=== PATIENT | male | born 1960 | race African-American/Black ===

== ENCOUNTER 2017-04-28 23:03 | Inpatient (IN) | payer MEDICAID ==
--- NOTE | ~2017-04-28 | EC ---
PATIENT:KRISTINA AGRCIA JR DATE OF SERVICE: 04/28/17 SEX: M MEDICAL RECORD: [id number] DATE OF : 60 LOCATION:D.M2 D.213 AGE OF PATIENT: 56 ADMISSION DATE: 04/28/17 REFERRING PHYSICIAN: INTERPRETING PHYSICIAN: ERIN GALO MD ECHOCARDIOGRAM REPORT ECHO CHARGES 4 ECHO COMPLETE CLINICAL DIAGNOSIS: CHF HX ICD ECHOCARDIOGRAPHIC MEASUREMENTS (adult normal given) AC root (d.<3.7cm) 3.4 cm LV Septum d (<1.2 cm> 1.5 cm Valve Excursion 1.5 cm LV Septum (systole) 1.8 cm Left Atria (s.<4.0cm> 4.4 cm LVPW d(<1.2cm) 1.3 cm RV (d.<2.3cm) 6.3 cm LVPW (sytole) 1.5 cm LV diastole(<5.6CM) 6.9 cm MV E-F(>70mm/sec) cm LV systole 5.6 cm LVOT Diameter 1.8 cm MV exc.(>10mm) 1.5 cm Est.ejection fraction (50-75%) % Pericardial Effusion N DOPPLER: LVIT cm/sec A 71.0 cm/sec E 140 cm/sec LA cm/sec RVSP 48 mmHg LVOT 127 cm/sec AOP1/2T m/s Asc. Ao 195 cm/sec RVOT 109 cm/sec RA cm/sec PA 1458 cm/sec AV Gradient Peak 15.18mmHg AV Mean 7.74 mmHg AV Area 1.7 cm MV Gradient Peak 7.08 mmHg MV Mean 2.42 mmHg MV Area cm COMMENTS: Small Electric Engine Technician: Anjel SOLIS Die Drawing Checker: 2 Dr. [employer] TAPE# PACS DATE OF SERVICE: 05/01/2017 PROCEDURE: Transthoracic echocardiogram. FINDINGS: 1. The left ventricle has evidence of left ventricular hypertrophy, is also dilated. There is regional wall motion abnormalities present including inferior apical dyskinesis and overall ejection fraction of 20% to 25%. The patient's diastolic function is indeterminate. 2. The left atrium is moderately dilated. ECHOCARDIOGRAM REPORT [id number] RADHA KRISTINA XAVIER 3. The aortic valve is structurally normal. 4. Pulmonic valve has trace to mild pulmonic insufficiency. 5. Tricuspid valve has mild tricuspid regurgitation, appears to be a pacer lead coming through the right atrium, right ventricle through the tricuspid valve structure. RVSP is 48 mmHg. 6. The right atrium is moderately dilated. 7. The right ventricle is severely dilated. CONCLUSIONS: The patient has evidence of systolic dysfunction, dilated cardiomyopathy with regional wall motion abnormalities consistent with ischemic cardiomyopathy. TRANSINT:[id number] Voice Confirmation ID: [id number] DOCUMENT ID: [id number] 05/12/2017 Edited to correct date of service, dm. ERIN GALO MD at 1001 CC: [id number] DICTATION DATE: 05/02/172056 PAINT DIPPER: 05/03/17 [id number] DIS IN 05/02/17 [facility] [address] [place] [address]
[2017-04-29 02:33] VITALS: BMI 30.6
[2017-04-29 08:33] VITALS: BP 112/68
[2017-04-29] MEDS ORDERED: LIPITOR40 MG PO (10:56)
[2017-04-29] MEDS ORDERED: COREG25 MG PO (10:57)
[2017-04-29] MEDS ORDERED: ISOSORBIDE MONO30 M1 PO (10:58)
[2017-04-29] MEDS ORDERED: LANOXIN125 MCG PO (10:59)
[2017-04-29] MEDS ORDERED: COLCRYS0.6 MG PO (11:00)
[2017-04-29] MEDS ORDERED: ASPIRIN81 MG PO (11:00)
[2017-04-29] MEDS ORDERED: FLOMAX0.4 MG PO (11:01)
[2017-04-29] MEDS ORDERED: PROSCAR5 MG PO (11:01)
[2017-04-29] MEDS ORDERED: NEPHROCAPS SOFTG1 MG PO (11:01)
[2017-04-29] MEDS ORDERED: ZANTAC150 MG PO (11:02)
[2017-04-29] MEDS ORDERED: RENVELA0.8 GM PO (11:02)
[2017-04-29] MEDS ORDERED: PLAVIX75 MG PO (11:09)
[2017-04-29] MEDS ORDERED: NITRO-DUR0.4 MG TRANSDERM (11:11)
[2017-04-29 11:53] VITALS: BP 104/60
[2017-04-29 13:12] LABS: BASOPHILS 0.3 % (0-2); EOSINOPHILS 1.1 % (0-7); HEMATOCRIT 23.3 % (42.0-54.0); IMMATURE GRANULOCYTES 0.3 % (0-5); LYMPHOCYTES 5.3 % (15-50); MCH 27.8 pg (26.0-34.0); MCHC 30.9 g/dL (31.0-37.0); MEAN PLATELET VOLUME 9.4 fL (7.4-10.4); MONOCYTES 10.9 % (2-11); NEUTROPHILS 82.1 % (40-80); PLATELET COUNT 272 10x3/uL (130-400); RBC 2.59 10x6/uL (4.20-6.10); WBC 9.1 10x3/uL (4.8-10.8)
[2017-04-29 13:19] LABS: HEMOGLOBIN 7.2 g/dL (13.5-17.5)
[2017-04-29 13:25] VITALS: BMI 30.5
[2017-04-29 13:29] LABS: % SATURATION 16 % (15-55); IRON 20 ug/dl (35-150); TOTAL IRON BIND CAPACITY 119 ug/dl (260-445); UNSAT IRON BIND CAPACITY 99 ug/dl (150-375)
[2017-04-29 13:35] LABS: APTT 33.4 SECONDS (22.8-39.4); INR 1.46 (0.85-1.17); PROTIME 17.2 SECONDS (11.6-15.0)
[2017-04-29 13:57] LABS: ALBUMIN 2.1 g/dL (3.4-5.0); ANION GAP 11.6 mmol/L (8-16); BILIRUBIN - TOTAL 0.51 mg/dL (0.2-1.3); CALCIUM 8.5 mg/dL (8.5-10.1); CARBON DIOXIDE 31.9 mmol/L (21.0-32.0); CREATININE - SERUM 5.7 mg/dL (0.6-1.3); DIGOXIN 0.83 ng/mL (0.90-2.00); MAGNESIUM - SERUM 1.9 mg/dL (1.8-2.4); POTASSIUM - SERUM 3.5 mmol/L (3.5-5.1); PROTEIN - SERUM 6.3 g/dL (6.4-8.2)
[2017-04-29 14:30] VITALS: BMI 30.5
[2017-04-29 16:02] VITALS: BP 87/51
[2017-04-29] MEDS ORDERED: COREG 3.1253.125 MG PO (16:29)
[2017-04-29 16:32] VITALS: BP 91/57
[2017-04-29 19:39] LABS: ERYTHROCYTE SEDIMENTATION RATE 39 mm/hr (0-20)
[2017-04-29 20:00] VITALS: BP 94/54
[2017-04-30] VITALS: BP 100/56
[2017-04-30 04:00] VITALS: BP 100/60
[2017-04-30 08:05] VITALS: BP 106/61
[2017-04-30 09:17] LABS: FOLATE (FOLIC ACID) - SERUM >20.0 ng/mL (>3.0)
[2017-04-30 16:02] VITALS: BP 100/51
[2017-04-30 19:00] VITALS: BP 100/42
[2017-05-01] VITALS: BP 108/53
[2017-05-01 03:35] VITALS: BP 106/57
[2017-05-01 04:40] LABS: BASOPHILS 0.5 % (0-2); EOSINOPHILS 2.5 % (0-7); HEMATOCRIT 26.5 % (42.0-54.0); HEMOGLOBIN 8.1 g/dL (13.5-17.5); IMMATURE GRANULOCYTES 0.3 % (0-5); LYMPHOCYTES 8.7 % (15-50); MCH 27.8 pg (26.0-34.0); MCHC 30.6 g/dL (31.0-37.0); MCV 91.1 fL (80.0-100.0); MEAN PLATELET VOLUME 9.6 fL (7.4-10.4); MONOCYTES 8.9 % (2-11); NEUTROPHILS 79.1 % (40-80); RBC 2.91 10x6/uL (4.20-6.10); WBC 9.9 10x3/uL (4.8-10.8)
[2017-05-01 04:49] LABS: PLATELET COUNT 329 10x3/uL (130-400)
[2017-05-01 05:09] LABS: ANION GAP 12.6 mmol/L (8-16); CALCIUM 9.2 mg/dL (8.5-10.1); CARBON DIOXIDE 29.8 mmol/L (21.0-32.0); CREATININE - SERUM 5.9 mg/dL (0.6-1.3); POTASSIUM - SERUM 3.4 mmol/L (3.5-5.1)
[2017-05-01 07:59] VITALS: BP 102/43
[2017-05-01 11:12] VITALS: BP 85/48
[2017-05-01 15:00] LABS: PROTEIN - BODY FLUID 3.5 G/DL
[2017-05-01 15:11] VITALS: BP 92/54
[2017-05-01 16:38] LABS: NEUT - BF 18 %
[2017-05-01 20:00] VITALS: BP 107/53
[2017-05-02 04:00] VITALS: BP 111/61
[2017-05-02 06:22] LABS: BASOPHILS 0.6 % (0-2); EOSINOPHILS 2.1 % (0-7); HEMATOCRIT 25.7 % (42.0-54.0); HEMOGLOBIN 7.9 g/dL (13.5-17.5); IMMATURE GRANULOCYTES 0.2 % (0-5); LYMPHOCYTES 10.5 % (15-50); MCH 27.6 pg (26.0-34.0); MCHC 30.7 g/dL (31.0-37.0); MCV 89.9 fL (80.0-100.0); MONOCYTES 11.2 % (2-11); NEUTROPHILS 75.4 % (40-80); PLATELET COUNT 362 10x3/uL (130-400); RBC 2.86 10x6/uL (4.20-6.10); RDW 16.3 % (11.5-14.5); WBC 8.6 10x3/uL (4.8-10.8)
[2017-05-02 06:33] LABS: ANION GAP 14.3 mmol/L (8-16); CALCIUM 9.1 mg/dL (8.5-10.1); CARBON DIOXIDE 28.6 mmol/L (21.0-32.0); POTASSIUM - SERUM 3.9 mmol/L (3.5-5.1)
[2017-05-02 06:41] LABS: CREATININE - SERUM 7.7 mg/dL (0.6-1.3)
[2017-05-02 08:53] VITALS: BP 132/70
[2017-05-02 12:16] LABS: APPEARANCE HAZY (CLEAR); BILIRUBIN NEGATIVE (NEGATIVE); COLOR DK YELLOW (YELLOW); GLUCOSE NEGATIVE (NEGATIVE); KETONE NEGATIVE (NEGATIVE); NITRITE NEGATIVE (NEGATIVE); PROTEIN 1+ mg/dL (NEGATIVE); SPECIFIC GRAVITY 1.005 (1.005-1.020); UROBILINOGEN NORMAL (NORMAL)
[2017-05-02 12:17] LABS: BACTERIA FEW /hpf (NONE SEEN); EPITHELIAL CELLS 0-5 /hpf (0-5); MUCUS <1+ /lpf (NONE SEEN); WHITE CELLS - URINE RARE /hpf (0-5)
[2017-05-02 13:36] VITALS: BP 96/44
[2017-05-02 16:27] VITALS: BP 102/57
[2017-05-02 20:00] VITALS: BP 96/49
== END 2017-05-02 23:33 | disposition home health service (06) | DRG 291 ==
LOC: D.M2 23:03
PROVIDERS: Internal Medicine Nephrology; Orthopaedic Surgery
PROC: 0S9C3ZZ Drainage of Right Knee Joint, Percutaneous Approach (ICD-10-PCS; principal; 2017-05-01)
DX: I13.2 Hypertensive heart and chronic kidney disease with heart failure and with stage 5 chronic kidney disease, or end stage renal disease (principal); N18.6 End stage renal disease; I50.23 Acute on chronic systolic (congestive) heart failure; L89.153 Pressure ulcer of sacral region, stage 3; I42.0 Dilated cardiomyopathy; E11.22 Type 2 diabetes mellitus with diabetic chronic kidney disease; I25.10 Atherosclerotic heart disease of native coronary artery without angina pectoris; J44.9 Chronic obstructive pulmonary disease, unspecified; E78.5 Hyperlipidemia, unspecified; M25.462 Effusion, left knee; M25.461 Effusion, right knee; D63.1 Anemia in chronic kidney disease; N40.0 Benign prostatic hyperplasia without lower urinary tract symptoms; Z86.73 Personal history of transient ischemic attack (TIA), and cerebral infarction without residual deficits; M25.561 Pain in right knee